=== PATIENT | male | born 1950 | race Caucasian/White ===

== ENCOUNTER → 2022-08-15 | Day surgery (SDC) | payer MEDICARE, OTHER ==
[2022-08-13 15:21] LABS: COVID AG,FIA SOURCE NASAL SWAB
[~2022-08-15] VITALS: Ht 170.2 cm; Wt 75.9 kg
[~2022-08-15] MED LIST: ACETAMINOPHEN 1000 MG/ISO-OSM 100 ML IV ONE; ACETAMINOPHEN 500 MG TABLET PO PRN; ATOR40TA28 PO; BUPIVACAINE HCL/PF 0.5% 30 ML VIAL ONE; CHOL25TA4 PO; CeFAZolin 2 GM/DEXTROSE 50 ML IV ONE; DEXAMETHASONE SOD PHOS 4 MG/ML VIAL IVP ONE; DIVA-112 PO; FentaNYL CITRATE PF 100 MCG/2 ML VIAL IVP ONE; FentaNYL CITRATE PF 100 MCG/2 ML VIAL IVP PRN; HYDROCODONE/ACETAMINOPHEN 10-325 MG TABLET PO PRN; IBUPROFEN 800 MG TABLET PO PRN; LAMO100T16 PO; LIDOCAINE 1%/EPI 1:200,000/PF 30 ML VIAL ONE; LIDOCAINE 2%/EPI 1:200,000/PF 20 ML VIAL ONE; LIDOCAINE/PF 2% 5 ML VIAL IM ONE; LISI-893 PO; MIDAZOLAM HCL 2 MG/2 ML VIAL IVP ONE; ONDANSETRON HCL 4 MG/2 ML VIAL IVP ONE; OXYGEN THERAPY IH SCH; PHEN100C9 PO; RINGERS SOLUTION,LACTATED 1,000 ML IV ONE; ROCURONIUM BROMIDE 10 MG/ML 5 ML VIAL IVP ONE; SODIUM CHLORIDE 0.9% 1,000 ML IV ONE; SUGAMMADEX SODIUM 200 MG/2 ML VIAL IVP ONE
[2022-08-15 06:08] LABS: BASOPHILS % (AUTO) 0.9 % (0.0-2.0); EOSINOPHILS % (AUTO) 4.2 % (1.0-6.0); HEMATOCRIT 41.7 % (41-53); HEMOGLOBIN 13.7 g/dL (13.5-17.5); LYMPHOCYTES # (AUTO) 2.4 K/uL (1.0-4.8); LYMPHOCYTES % (AUTO) 26.5 % (22.0-44.0); MEAN CORPUSCULAR HEMOGLOBIN 26.7 pg (26.0-34.0); MEAN CORPUSCULAR HGB CONC 32.8 G/dL (31.0-37.0); MEAN CORPUSCULAR VOLUME 81 fL (80-100); MONOCYTES # (AUTO) 0.5 K/uL (0.1-1.0); NEUTROPHILS # (AUTO) 5.6 K/uL (1.8-7.7); NEUTROPHILS % (AUTO) 62.4 % (40.0-70.0); PLATELET COUNT (AUTO) 193 K/uL (150-450); RED BLOOD CELL COUNT(AUTO) 5.13 MIL/uL (4.50-5.90); RED CELL DISTRIBUTION WIDTH 14.8 % (11.5-14.5)
[2022-08-15 06:20] LABS: CALCIUM, TOTAL 9.4 mg/dL (8.8-10.5); CREATININE 1.76 mg/dL (0.60-1.30); POTASSIUM 4.6 mmol/L (3.5-5.1)
== END | disposition still patient (30) ==
LOC: SURGERY 05:08
PROVIDERS: ATTEND Surgery
DX: K43.6 Other and unspecified ventral hernia with obstruction, without gangrene (principal); Z79.899 Other long term (current) drug therapy; Z20.822 Contact with and (suspected) exposure to COVID-19; F17.210 Nicotine dependence, cigarettes, uncomplicated; Z98.890 Other specified postprocedural states; I10 Essential (primary) hypertension
CPT/HCPCS: 93005; 87426; 49592; 80048; 85025; 36415; 88302; C9803; J3490 ×3; J0690 ×2; J1100; J3010; J2250; J2405; Q9967; J7120; J0131